=== PATIENT | female | born 1960 | race Caucasian/White ===

== ENCOUNTER 2019-09-03 14:46 | Observation (INO) | payer OTHER, SELFPAY ==
--- NOTE | ~2019-09-03 | XR_ITS ---
EXAMINATION: XR wrist RT 2V DATE: 09/03/2019 15:48 INDICATION: Posterior right wrist abscess. TECHNIQUE: Posteroanterior and lateral views of the right wrist were obtained. COMPARISON: none FINDINGS: Bone alignment is normal. Abnormal contour to the articular surface of the distal radius with suggest ion of an old healed fracture with slight depression of the articular surface at the lunate fossa. No acute fractures identified. The profiled portions of the joint spaces appear normal. Prominent soft tissue swelling with subcutaneous edema over the dorsum of the right hand, wrist and m id to distal forearm. There is prominent focal bulging dorsal to the carpus which may represent a sit e of a reported abscess. No soft tissue gas or radiopaque foreign body. No underlying cortical erosio n or periosteal reaction to suggest osteomyelitis. IMPRESSION: 1. No acute osseous abnormality, soft tissue gas or radiopaque foreign bodies. Reviewed, dictated and finalized at location A. ERCIAL MANAGER
[2019-09-03 14:55] VITALS: BP 128/72; PULSE 93; RESP 20; TEMP 37.4; O2SAT 97
--- NOTE | 2019-09-03 15:35 | ED.SKABFB ---
HPI - Skin/Abscess/Foreign Bdy General Chief complaint: Skin/Abscess/Foreign Body Stated complaint: Right hand irritation Source: patient and family (son) Mode of arrival: ambulatory Limitations: no limitations History of Present Illness HPI narrative: 59 y.o. with no known medical problems per son c/o pimple like lesion which erupted on the back of her right wrist 2 days ago which has been getting larger and more painful. It's a sharp constant pain, made worse with wrist flexion/extension or when pressure is applied. No hx of injury or puncture. She has no hx of skin infections/MRSA. No family members with MRSA. There's been no treatment prior to arrival. Was very obese 2 years ago. After the of her she started loosing weight, which has persisted. No knowledge of previous weight. Related Data Home Medications Medication Instructions Recorded Confirmed No Home Medications 09/03/19 09/03/19 Allergies Allergy/AdvReac Type Severity Reaction Status Date / Time No Known Allergies Allergy Verified 09/03/19 15:04 Review of Systems Constitutional: Constitutional: Reports chills Eyes: Eyes: Denies blurry vision ENT: Reports Normal hearing present, Denies neck pain and Denies sore throat Cardiovascular: Cardiovascular: Reports chest pain (pain in right upper chest this AM for a little while. None before or since.) and Reports lightheadedness Respiratory: Respiratory: Denies dyspnea Gastrointestinal: Gastrointestinal: Denies abdominal pain, Denies diarrhea and Reports nausea (last PM) Genitourinary: Genitourinary: Denies dysuria Musculoskeletal: Musculoskeletal: Denies back pain Integumentary/Breasts: Skin/Breast: Reports system reviewed and no additional complaints, except as docu Neurologic: Reports headache(s) (today) Psychiatric: Comments: Sometimes hears voices, can't make out what they are saying. Son states mental health provider saw her at home in the past; she was on a medicine; she and he do not know the name or purpose. Endocrine: Endocrine: Reports polyuria (urinates x5 at night. ) Hematologic/Lymphatic: Hematologic/Lymphatic: Denies easy bleeding PMFSH Past Medical History Medical History (Updated 09/03/19 @ 16:27 by Williams Giron MD) Obesity Varicose veins of both lower extremities Social History Social History Smoking status: Former smoker Alcohol intake: never Substance use: never Gender identity (if verbalized by the patient): Female Spiritual care concerns: No Agree to blood products: Yes Exam Narrative: Exam Narrative: 37.4, 93, 20. 128/72 Const: General: cooperative and other (disheveled) Nutritional Appearance: obese Orientation/consciousness: patient oriented x3 HENMT: Head: normal to inspection General nose exam: Normal external nose present Face and sinus: sinuses nontender Mouth: Yes Normal oral and palatal mucosa present, Yes moist mucous membranes and Yes other (edentulous) Throat: posterior oropharynx normal Eyes: General: appearance normal, both eyes and all related structures EOM: EOMs intact bilaterally Neck: Neck: normal visual inspection Lymphatic: no lymphadenopathy noted Chest: Chest palpation & inspection: normal inspection of the chest Resp: Effort & Inspection: normal respiratory effort, able to speak in complete sentences and no respiratory distress Auscultation: clear to auscultation bilaterally Cardio: Rate: regular rate Rhythm: regular rhythm Heart sounds: no murmurs GI: Inspection: normal to inspection, Abdominal wall edema and obesity GI Palp: No abdominal tenderness Back/Spine/Pelvis: Thoracic/Lumbar Spine: thoracic and lumbar spine normal to inspection Skin: Lesions: lesion noted ( ) Wounds: wounds noted (Raised, red 1 cm ulcer right dorsal with surrounding erythema.) Other: right dorsal hand is swollen,red and tender. Fingers are swollen. Dark red swollen of the entire dorsal wirist/tender. Redne
[2019-09-03] MEDS: ACETAMINOPHEN 325 MG TABLET 650 MG PO (15:40)
--- NOTE | 2019-09-03 15:45 | PC.NURSE ---
I&D of abscess posterior R wrist done by Dr Giron. Moderate amount of purulent drainage noted. Dressing placed using non-adherent gauze, 4x4s and tape. Pt tolerated well.
[2019-09-03 15:59] LABS: Basophils Absolute Auto 0.02 K/mm3 (0.00-0.10); Basophils Percent Auto 0.3 % (0.0-1.0); Eosinophils Absolute Auto 0.01 K/mm3 (0.02-0.50); Eosinophils Percent Auto 0.1 % (1.0-6.0); Hematocrit 37.7 % (35.0-49.0); Hemoglobin 12.2 g/dL (12.0-15.0); Immature Granulocyte Absolute 0.02 K/mm3 (0.00-0.00); Immature Granulocyte Percent A 0.3 % (0.0-0.0); Lymphocytes Percent Auto 13.1 % (18.0-42.0); Mean Corpuscular HGB Conc 32.4 g/dL (32.0-36.0); Mean Corpuscular Volume 89.5 fL (78.0-102.0); Monocytes Absolute Auto 0.85 K/mm3 (0.10-0.90); Monocytes Percent Auto 11.2 % (2.0-11.0); Neutrophils Absolute Auto 5.7 K/mm3 (1.7-7.2); Platelet Count Result 116 K/mm3 (150-420); Red Blood Count 4.21 M/mm3 (4.20-5.40); Red Cell Distribution Width 13.5 % (11.6-14.4); White Blood Count 7.6 K/mm3 (4.8-10.8)
[2019-09-03 16:13] LABS: Alanine Aminotransferase 27 U/L (14-59); Albumin Level 3.5 g/dL (3.4-5.0); Alkaline Phosphatase 80 U/L (46-116); Anion Gap 13.5 mmol/L (7-16); Aspartate Amino Transferase 20 U/L (15-37); Bilirubin,Total 0.4 mg/dL (0.00-1.00); Blood Urea Nitrogen 23 mg/dL (7-18); Calcium 8.5 mg/dL (8.5-10.1); Carbon Dioxide 28 mmol/L (21-32); Chloride 104 mmol/L (98-108); Estimated CRCL calculation 76 ml/min; Estimated Glomerular Filt Rate > 60; Glucose 114 mg/dL (70-99); Osmolality Calculated 298 mOsm/kg (285-295); Potassium 3.5 mmol/L (3.5-5.1); Sodium 142 mmol/L (136-145); Total Protein 7.2 g/dL (6.4-8.2)
--- NOTE | 2019-09-03 16:45 | PC.NURSE ---
Clarified with Dr Giron re: need for blood cultures prior to administration of Vancomycin. Per Dr Giron, blood cultures are not warranted at this time.
[2019-09-03 17:36] VITALS: BP 150/75; PULSE 77; RESP 20; O2SAT 98
[2019-09-03 17:41] LABS: Add Urine Microscopic? YES; Appearance Urine Clear (Clear); Bilirubin Urine Negative (Negative); Blood Urine 2+ (Negative); Color Urine Yellow (Yellow); Glucose Urine UA Negative (Negative); Ketones Urine Negative (Negative); Leukocyte Esterase Ur Trace (Negative); Nitrate Urine Negative (Negative); Protein Urine Negative (Negative)
[2019-09-03 17:45] LABS: WBC Urine 0-3 /hpf (0-3)
[2019-09-03 17:46] LABS: Bacteria Urine 1+ /hpf; Squamous Epithelial Cell Urine Few /hpf (Few)
[2019-09-03 17:50] VITALS: BMI 33.1
--- NOTE | 2019-09-03 18:05 | PC.NURSE ---
here for antibiotic therapy after I/D of Right hand near wrist area, hand swollen and red, dressing from ER in place, vanco infusing, oriented to room and hospital procedures
[2019-09-03 18:17] VITALS: BP 116/70; PULSE 79; RESP 18; TEMP 37; O2SAT 96
--- NOTE | 2019-09-03 19:05 | PC.NURSE ---
Patient ambulated to/from bathroom with steady gait with SBA. Denies pain to right hand/wrist/forearm @ this time. Dressing CDI to area. Area remains swollen and red. Call light in reach.
--- NOTE | 2019-09-03 20:00 | PC.NURSE ---
Patient watching tv while lying in bed. Right hand elevated on 2 pillows. Right hand/wrist/forearm area remains swollen and red. Patient continues to deny pain to area. Call light in reach.
--- NOTE | 2019-09-03 21:10 | PC.NURSE ---
Patient appears to be sleeping by the rise and fall of her chest. Respirations even and unlabored. No distress noted. Call light in reach.
--- NOTE | 2019-09-03 21:11 | PC.NURSE ---
Right hand/wrist/forearm remains elevated on 2 pillows. Area remains red and swollen. No evidence of pain noted. Call light in reach.
--- NOTE | 2019-09-03 22:00 | PC.NURSE ---
Patient appears to be sleeping by the rise and fall of her chest. Respirations even and unlabored. No distress noted. Call light in reach.
--- NOTE | 2019-09-03 22:01 | PC.NURSE ---
Right hand/wrist/forearm remains red and swollen. Dressing CDI to area. No evidence of pain noted. Call light in reach.
--- NOTE | 2019-09-03 23:45 | PC.NURSE ---
Patient awakened easily for VS but remained drowsy. Right hand/wrist/forearm remains swollen and red and area continues to be elevated on 2 pillows. Patient denies pain/complaints/needs @ this time. No distress noted. Call light in reach.
[2019-09-04] VITALS: BP 121/75; PULSE 64; RESP 20; TEMP 37.2; O2SAT 98
--- NOTE | 2019-09-04 00:06 | PC.NURSE ---
Patient appears to be sleeping by the rise and fall of her chest. Respirations even and unlabored. Right hand remains elevated on 2 pillow and hand/wrist/forearm remain swollen and red. No evidence of pain noted. Call light in reach.
--- NOTE | 2019-09-04 01:05 | PC.NURSE ---
Patient appears to be sleeping by the rise and fall of her chest. Respirations even and unlabored. Right hand remains elevated on 2 pillow and hand/wrist/forearm appear slightly less swollen and less red. No evidence of pain noted. Call light in reach.
--- NOTE | 2019-09-04 02:00 | PC.NURSE ---
Patient appears to be sleeping by the rise and fall of her chest. Respirations even and unlabored. Right hand remains elevated on 2 pillows and hand/wrist/forearm are less swollen and red. No evidence of pain noted. Call light in reach.
--- NOTE | 2019-09-04 02:59 | PC.NURSE ---
Patient appears to be sleeping by the rise and fall of her chest. Respirations even and unlabored. Patient's right hand/wrist/forearm remain elevated on 2 pillows. Slight improvement in swelling and redness noted. No distress noted. No evidence of pain noted. Call light in reach.
--- NOTE | 2019-09-04 03:50 | PC.NURSE ---
Patient awake when nurse entered room. Patient ambulated to/from bathroom with 1 assist with unsteady gait. Patient's right hand/wrist/forearm less red and swelling continues to decrease slowly. Area elevated on 2 pillows. Patient denies pain to area. Patient also denies any other pain/complaints/needs @ this time. Vancomycin began infusing to site in left forearm. Site flushes with ease. Call light in reach.
--- NOTE | 2019-09-04 04:35 | PC.NURSE ---
Patient lying in bed watching tv. IV Vancomycin infusing without difficulty to site in left forearm. Right hand remains elevated on 2 pillows. Patient denies pain/complaints/needs @ this time. Call light in reach.
--- NOTE | 2019-09-04 06:24 | PC.NURSE ---
Patient lying in bed watching tv. IV Vancomycin finished infusing. Right hand remains elevated on 2 pillows. Patient denies pain/complaints/needs @ this time. Call light in reach.
--- NOTE | 2019-09-04 07:30 | PC.NURSE ---
Hand remains in pillow, dressing dry and intact, less redness to hand, more pink, less edema than on admit,
[2019-09-04 07:32] VITALS: BP 109/62; PULSE 65; RESP 18; TEMP 37; O2SAT 96
--- NOTE | 2019-09-04 08:09 | PC.NURSE ---
Sitting on edge of bed eating, less redness and edema to right hand this am
[2019-09-04] MEDS: ENOXAPARIN 40 MG/0.4 ML SYRINGE SUB-Q (09:30)
--- NOTE | 2019-09-04 09:37 | PC.NURSE ---
Assisted up to chair to watch TV, right hand elevated on pillow dressing dry and intact, edema to hand less, no pain
--- NOTE | 2019-09-04 10:34 | PC.NURSE ---
in chair with arm / hand elevated on pillow for comfort, denies pain, dressing dry and intact
--- NOTE | 2019-09-04 11:06 | PC.NURSE ---
In chair with arm elevated, denies needs, dressing d/i
--- NOTE | 2019-09-04 12:09 | PC.NURSE ---
IN chair eating lunch, no pain in right hand, dressing remains dry and intact, no increase in edema today
--- NOTE | 2019-09-04 12:24 | PM.IMHP ---
H&P: HPI History of Present Illness Chief complaint: Right hand irritation Narrative: Alyssa Ardon is a 59 year old female that presented to ED complaining of right hand and wrist pain. Patient has a past medical history of obesity in varicose veins of both lower extremities. . Patient is being admitted for right hand and wrist cellulitis. vital signs are 109/62, 65, 18, 37.0 and 96% on room air. According to patient 3 days ago she developed a pimple on her right hand, she used hydrogen peroxide and ointment to the site. The same day patient patient noted that her right hand became edematous and danielle. she also took [id number] ibuprofen for her pain. While patient was at home she felt discharge constant pain that worsened when she flexed her wrist when pressure was applied. While she was in the ER x-ray of the wrist was completed and indicated Prominent soft tissue swelling with subcutaneous edema over the dorsum of the right hand, wrist and mid to distal forearm. There is prominent focal bulging dorsal to the carpus which may represent a site of a reported abscess. No soft tissue gas or radiopaque foreign body. No underlying cortical erosion or periosteal reaction to suggest osteomyelitis. patient white blood cells was within normal limits. ED physician completed an I&D of the right hand while in the ED and a culture was sent patient was placed on vancomycin because cellulitis involved hand and wrist. Patient able to tolerate all meals , slept well and ambulate at baseline. Patient denies SOB, CP, palpitation, extremity numbness, lightheadness, dizziness, constipation, diarrhea, or chills or fever. Dressing changed on right hand according to patient edema and erythemous have improved. while changing dressing there was a dime size serosanguineous drainage noted on Telfa dressing. site remained edematous with erythemous around the raised lesion. there was no edematous or erythema on patient digits. I will give patient 1 more dose IV vancomycin and start her on p.o. clindamycin tomorrow morning and discharge. Review of Systems Constitutional: Constitutional: Denies fatigue, Reports fever(s), Denies headache(s) and Denies weakness Cardiovascular: Cardiovascular: Reports no additional cardiovascular complaints, Denies syncope, Denies edema, Denies leg ulcers, Denies leg edema and Denies dyspnea Respiratory: Respiratory: Denies chest congestion, Denies cough, Denies dyspnea, Denies snoring and Denies wheezing Gastrointestinal: Gastrointestinal: Denies constipation, Denies diarrhea, Denies nausea and Denies vomiting Genitourinary: Genitourinary: Reports no additional female genitourinary complaints, Denies urinary incontinence and Denies urinary hesitancy Musculoskeletal: Musculoskeletal: Denies arthralgias ( right wrist and hand) and Denies joint swelling ( right wrist and hand) Integumentary/Breasts: Skin/Breast: Reports swelling ( right wrist and hand) and Reports erythema ( right wrist and hand) Neurologic: Reports system reviewed and no additional complaints, except as documented, Denies confusion, Denies vertigo, Denies dizziness, Denies syncope, Denies frequent falls, Denies headache(s) and Denies tingling Psychiatric: Psychiatric: Reports no additional psychiatric complaints PMF Past Medical History Medical History (Updated 09/04/19 @ 12:57 by ROZ MclaughlinP-C) Obesity Varicose veins of both lower extremities Social History Social History Smoking status: Former smoker Alcohol intake: never Substance use: never Gender identity (if verbalized by the patient): Female Spiritual care concerns: No Agree to blood products: Yes Meds Home Medications and Allergies Home Medications Medication Instructions Recorded Confirmed Type No Home Medications 09/03/19 09/03/19 History Allergies Allergy/AdvReac Type Severity Reaction Status Date / Time No Known Allergies Allergy Verified
--- NOTE | 2019-09-04 13:10 | PC.NURSE ---
Remains in chair with hand elevated on pillows, edema present but much less, no apin
[2019-09-04] MEDS: PHARMACIST COMMUNICATION ORDER 1 EACH XX (13:23)
--- NOTE | 2019-09-04 14:37 | PC.NURSE ---
In chair with arm elevated on pillow, dressing dry and intact
[2019-09-04] MEDS: IBUPROFEN 400 MG TABLET PO (15:27)
[2019-09-04 15:30] VITALS: BP 92/44; PULSE 67; RESP 20; TEMP 36.8; O2SAT 100
[2019-09-04 15:37] LABS: Hematocrit 36.6 % (35.0-49.0); Hemoglobin 11.6 g/dL (12.0-15.0); Mean Corpuscular HGB Conc 31.7 g/dL (32.0-36.0); Mean Corpuscular Hemoglobin 28.9 pg (27.0-31.0); Mean Platelet Volume 10.2 fl (9.2-11.8); Platelet Count Result 116 K/mm3 (150-420); Red Blood Count 4.02 M/mm3 (4.20-5.40); Red Cell Distribution Width 13.5 % (11.6-14.4); White Blood Count 5.5 K/mm3 (4.8-10.8)
[2019-09-04 15:53] LABS: Blood Urea Nitrogen 18 mg/dL (7-18); Calcium 8.1 mg/dL (8.5-10.1); Carbon Dioxide 30 mmol/L (21-32); Chloride 105 mmol/L (98-108); Estimated CRCL calculation 73 ml/min; Estimated Glomerular Filt Rate > 60; Glucose 103 mg/dL (70-99); Osmolality Calculated 293 mOsm/kg (285-295); Sodium 141 mmol/L (136-145)
[2019-09-04 15:54] LABS: Vancomycin Trough 14.2 ug/mL (10.0-15.0)
[2019-09-04] MEDS: CEFDINIR 300 MG CAPSULE PO (20:29)
[2019-09-05] VITALS: BP 102/50; PULSE 54; RESP 20; TEMP 36.1; O2SAT 97
--- NOTE | 2019-09-05 01:02 | PC.NURSE ---
Sleeping, resp deep & even. Dressing R hand is D&I. No redness noted to R arm.
--- NOTE | 2019-09-05 02:12 | PC.NURSE ---
Sleeping, resp even. Dressing R hand remains D&I. No redness noted to R arm.
--- NOTE | 2019-09-05 03:02 | PC.NURSE ---
Sleeping, resp even. Dressing R hand D&I.
--- NOTE | 2019-09-05 03:25 | PC.NURSE ---
Lab here for blood draw.
[2019-09-05 03:36] LABS: Hematocrit 34.6 % (35.0-49.0); Hemoglobin 11.2 g/dL (12.0-15.0); Immature Platelet Fraction Pct 2.5 % (1.0-7.0); Mean Corpuscular HGB Conc 32.4 g/dL (32.0-36.0); Mean Corpuscular Hemoglobin 29.2 pg (27.0-31.0); Mean Corpuscular Volume 90.3 fL (78.0-102.0); Mean Platelet Volume 9.7 fl (9.2-11.8); Platelet Count Result 109 K/mm3 (150-420); Red Blood Count 3.83 M/mm3 (4.20-5.40); Red Cell Distribution Width 13.5 % (11.6-14.4); White Blood Count 4.1 K/mm3 (4.8-10.8)
[2019-09-05 04:01] LABS: Blood Urea Nitrogen 14 mg/dL (7-18); Carbon Dioxide 28 mmol/L (21-32); Chloride 106 mmol/L (98-108); Estimated CRCL calculation 80 ml/min; Estimated Glomerular Filt Rate > 60; Glucose 89 mg/dL (70-99); Osmolality Calculated 291 mOsm/kg (285-295); Sodium 141 mmol/L (136-145)
[2019-09-05 04:14] LABS: Vancomycin Trough 16.3 ug/mL (10.0-15.0)
--- NOTE | 2019-09-05 04:28 | PC.NURSE ---
Dr. Roa notified [facility] trough:16.3; Pedro held.
--- NOTE | 2019-09-05 04:31 | PC.NURSE ---
0400 Vanco not given duie to trough level of 16.3
--- NOTE | 2019-09-05 06:04 | PC.NURSE ---
Sleeping, resp even. No redness noted to R arm. Dressing R hand D&I.
--- NOTE | 2019-09-05 07:30 | PC.NURSE ---
Resting inb ed with hand on pillow, dressing d/i, denies pain, swelling and redness to fingers improved
[2019-09-05 07:46] VITALS: BP 110/51; PULSE 72; RESP 18; TEMP 36.4; O2SAT 96
--- NOTE | 2019-09-05 08:30 | PC.NURSE ---
Ate well for breakfast, denies needs, no pain, able to use right hand and dressing remains d/i
[2019-09-05] MEDS: CEFDINIR 300 MG CAPSULE PO (08:46)
--- NOTE | 2019-09-05 09:30 | PC.NURSE ---
Resting in chair, legs elevated, hand on pillow, dressing d/i, oral antibiotics have started
--- NOTE | 2019-09-05 10:30 | PC.NURSE ---
Back in bed and arm up on pillow, no redness to hand or fingers, dressing dry and intact
--- NOTE | 2019-09-05 11:40 | PC.NURSE ---
Dressing to hand D/I, elevated on pillow, no redness to hand
--- NOTE | 2019-09-05 11:49 | PM.DS ---
DS: Diagnosis Admitting Diagnosis Admitting Diagnosis: Urinary tract infection, site not specified <MARCO Mclaughlin - Last Filed: 09/05/19 13:50> Discharge Diagnosis (1) Obesity: Code(s): E66.9 - Obesity, unspecified <MARCO Mclaughlin Last Filed: 09/05/19 13:50> Status: Acute <MARCO Mclaughlin Last Filed: 09/05/19 13:50> Assessment and Plan: * patient educated on proper nutrition. * patient instructed to consult Nutrition after discharge <MARCO Mclaughlin - Last Filed: 09/05/19 13:50> (2) Varicose veins of both lower extremities: Code(s): I83.93 - Asymptomatic varicose veins of bilateral lower extremities <MARCO Mclaughlin Last Filed: 09/05/19 13:50> Status: Acute <MARCO Mclaughlin Last Filed: 09/05/19 13:50> Assessment and Plan: * stable * follow-up with primary care physician <MARCO Mclaughlin - Last Filed: 09/05/19 13:50> (3) Abscess of right arm: Code(s): L02.413 - Cutaneous abscess of right upper limb <MARCO Mclaughlin Last Filed: 09/05/19 13:50> Status: Acute <MARCO Mclaughlin Last Filed: 09/05/19 13:50> Assessment and Plan: improved * x-ray of the right wrist and hand indicates Prominent soft tissue swelling with subcutaneous edema over the dorsum of the right hand, wrist and mid to distal forearm. There is prominent focal bulging dorsal to the carpus which may represent a site of a reported abscess. No soft tissue gas or radiopaque foreign body. No underlying cortical erosion or periosteal reaction to suggest osteomyelitis. * patient was discharged with p.o. clindamycin and medication * wbc's the normal limit * . * patient afebrile * wound culture indicate: Few White blood cells seen Few Gram positive cocci Rare Gram variable bacilli * I&D completed in the ED <Daviddestinee MARCO Nelson - Last Filed: 09/05/19 13:50> (4) Cellulitis of right arm: Code(s): L03.113 - Cellulitis of right upper limb <MARCO Mclaughlin - Last Filed: 09/05/19 13:50> Status: Acute <MARCO Mclaughlin - Last Filed: 09/05/19 13:50> Assessment and Plan: improved * x-ray of the right wrist and hand indicates Prominent soft tissue swelling with subcutaneous edema over the dorsum of the right hand, wrist and mid to distal forearm. There is prominent focal bulging dorsal to the carpus which may represent a site of a reported abscess. No soft tissue gas or radiopaque foreign body. No underlying cortical erosion or periosteal reaction to suggest osteomyelitis. * patient was discharged with p.o. clindamycin and medication * wbc's the normal limit * patient afebrile * I&D completed in the ED <MARCO Mclaughlin - Last Filed: 09/05/19 13:50> (5) UTI (urinary tract infection): Code(s): N39.0 - Urinary tract infection, site not specified <MARCO Mclaughlin - Last Filed: 09/05/19 13:50> Status: Acute <MARCO Mclaughlin - Last Filed: 09/05/19 13:50> Assessment and Plan: *Patient UA indicated leukocyte esterase and bacteria * continue cefdinir <MARCO Mclaughlin - Last Filed: 09/05/19 13:50> DS: Summary Hospital Course Hospital Course: admission notes for 09/04/2019 Narrative: Alyssa Ardon is a 59 year old female that presented to ED complaining of right hand and wrist pain. Patient has a past medical history of obesity in varicose veins of both lower extremities. . Patient is being admitted for right hand and wrist cellulitis. vital signs are 109/62, 65, 18, 37.0 and 96% on room air. According to patient 3 days ago she developed a pimple on her right hand, she used hydrogen peroxide and ointment to the site. The same day patient patient noted that her right hand became edematous and danielle. she also took [id number] ibuprofen
--- NOTE | 2019-09-05 12:59 | PC.NURSE ---
Patient dressed self, up independent in room, denies needs
--- NOTE | 2019-09-05 13:59 | PC.NURSE ---
Waiting for son for discharge, given afternoon snack at this time, dressed self and denies pain, dressing to hand d/i
--- NOTE | 2019-09-05 15:05 | PC.NURSE ---
discharged with son via WC to home, discharge instructions reviewed with son present, no questions at this time, number to nurse station given if have questions once home
--- NOTE | 2019-09-05 20:36 | PM.EVENT ---
Event Note Event Note Event Note: I had [id number] time with this patient and reviewed Saloni Ariza NP's documentation, treatment plan, and medical decision making. She moves her right wrist without pain. The dorsum of the hand is not erythema or tenderness. I agree with the plan.
--- NOTE | 2019-09-07 18:49 | PC.NURSE ---
URINE CULTURE RESULTS OBTAINED, PT CURRENTLY BEING TREATED APPROPRIATELY.
== END 2019-09-05 15:05 | disposition home or self-care (01) ==
LOC: CHSED 17:19 → CHS2ND 17:27
PROVIDERS: Nurse Practitioner; Admitting Provider Family Medicine; Emergency Provider Family Medicine; Visit Provider Family Medicine
DX: L02.413 Cutaneous abscess of right upper limb (principal); L03.113 Cellulitis of right upper limb; N39.0 Urinary tract infection, site not specified; I83.93 Asymptomatic varicose veins of bilateral lower extremities; E66.9 Obesity, unspecified
CPT/HCPCS: 10060; 36415; 73100; 80048; 80053; 80202; 81001; 85025; 85027; 85055; 87070; 87077; 87086; 87088; 87186; 87205; 96365; 96366; 96372; 99284; 99285; A9270; G0378; G0379; J1650; J3370; J7070

== ENCOUNTER 2020-07-05 21:20 | Inpatient (IN) | payer OTHER, SELFPAY ==
--- NOTE | ~2020-07-05 | CT_ITS ---
EXAMINATION: CTA chest PE abdomen pel DATE: 07/05/2020 23:26 INDICATION: Right-sided chest and abdominal pain TECHNIQUE: Computed tomography angiography (CTA) of the chest was performed with 100 mL Omnipaque-350 intravenous contrast timed to evaluate the pulmonary arteries. Subsequent postcontrast images of the abdomen and pelvis are obtained. Coronal maximum intensity projection 3D-reconstructions were create d by the technologist. The dose-length product (DLP) was 1374.21 mGy-cm. Automated exposure control a nd iterative reconstruction technique were employed. COMPARISON: None. FINDINGS: CTA CHEST: The pulmonary arteries are well-opacified. Respiratory motion artifact slightly limits exa mination. No definite pulmonary embolism is identified. There is a 5.3 x 3.1 cm ill-defined mass of t he right upper lobe. There is right hilar, right paratracheal, and precarinal lymphadenopathy. The he art size is normal. There is enlargement of the main and central pulmonary arteries, consistent with pulmonary hypertension. There is no pleural effusion or pneumothorax. There is a 1.4 cm nodule of the right thyroid lobe. ABDOMEN/PELVIS CT: The liver, spleen, pancreas, gallbladder, and adrenal glands are normal. The kidne ys are unremarkable. There is calcified atherosclerosis of the aorta and many of the other arteries. A moderate volume of colonic stool is present. There is no free intraperitoneal gas or evidence of deric wel obstruction. There is moderate bilateral inguinal lymphadenopathy. There are bilateral inguinal s urgical clips. There are bilateral L4 pars defects with grade 1 anterolisthesis of L4 on L5. IMPRESSION: 1. No definite pulmonary embolism identified, sensitivity slightly limited by respiratory motion ian fact. 2. Right upper lobe mass which could reflect pneumonia versus malignancy. Recommend antibiotic therap y and plan for CT-guided biopsy. Response to antibiotic therapy can be assessed at the time of planne d CT biopsy. 3. Right hilar and mediastinal lymphadenopathy, reactive versus metastatic. 4. Mild bilateral inguinal lymphadenopathy of unclear etiology. Surgical clips in the bilateral ingui nal regions could reflect prior lymph node dissection. Correlate with clinical history. 5. Right thyroid nodule. Consider ultrasound for risk stratification. Reviewed, dictated and finalized at location A. [employer] SERVICES ASSOCIATE IMPRESSION: 1. No definite pulmonary embolism identified, sensitivity slightly limited by r espiratory motion artifact. 2. Right upper lobe mass which could reflect pneumonia versus malignancy. Recom mend antibiotic therapy and plan for CT-guided biopsy. Response to antibiotic t herapy can be assessed at the time of planned CT biopsy. 3. Right hilar and mediastinal lymphadenopathy, reactive versus metastatic. 4. Mild bilateral inguinal lymphadenopathy of unclear etiology. Surgical clips in the bilateral inguinal regions could reflect prior lymph node dissection. Co rrelate with clinical history. 5. Right thyroid nodule. Consider ultrasound for risk stratification.
--- NOTE | ~2020-07-05 | CT_ITS ---
EXAMINATION: CT chest abdomen pelvis w con DATE: 07/08/2020 09:22 INDICATION: Lung mass. TECHNIQUE: Computed tomography (CT) of the chest, abdomen, and pelvis was performed with 100 Omnipaqu e 350 intravenous contrast. Automated exposure control and iterative reconstruction technique were em ployed. The dose-length product was 1062.30 mGy-cm. COMPARISON: CT 07/05/2020 FINDINGS: CHEST CT: There is mild atelectasis in the lungs. In the right upper lobe, there are airspace and groundglass o pacities with air bronchograms, consistent with pneumonia. There is mild emphysema. There is a small right pleural effusion. There is a 12 mm nodule in right thyroid lobe, likely not clinically signific ant. There is mediastinal and right hilar lymphadenopathy. For example, a right paratracheal node dustin sures 1.9 x 1.7 cm. The heart size is normal. No pericardial effusion. The main pulmonary artery is e nlarged, consistent with pulmonary arterial hypertension. There is moderate thoracic spondylosis. ABDOMEN/PELVIS CT: The liver and gallbladder are normal. There are multiple low-attenuation masses in the spleen measuri ng up to 9 mm, most likely granulomatous disease. The pancreas, adrenal glands, and kidneys are marily l. There are no dilated loops of bowel. The endometrial complex measures 9 mm in thickness. There are no dilated loops of bowel. The appendix is not visualized. There are surgical clips in the inguinal regions. There are no pathologically enlarged lymph nodes. There is no free intraperitoneal fluid. Th ere are chronic bilateral L4 pars defects. There is 10 mm anterolisthesis of L4 on L5. There is sever e degenerative disc disease at L4-L5. IMPRESSION: 1. Stable right upper lobe pneumonia. 2. Worsened small right pleural effusion. 3. Stable mediastinal and right hilar lymphadenopathy, likely reactive. Reviewed, dictated and finalized at location A. [employer] SYSTEM[employer] DEVELOPER
[2020-07-05 21:20] VITALS: BP 155/72; PULSE 87; RESP 16; TEMP 36.6; O2SAT 100
--- NOTE | 2020-07-05 21:22 | ECG_ITS ---
Measurements Intervals Nancy Rate: 81 P: 80 NE: 154 QRS: 96 QRSD: 89 T: 47 QT: 359 QTc: 419 Interpretive Statements SINUS RHYTHM RIGHT AXIS DEVIATION INCOMPLETE RIGHT BUNDLE BRANCH BLOCK BASELINE ARTIFACT- I, II, III, AVR, AVL, AVF BORDERLINE ECG Electronically Signed On 07-07-2020 8:23:44 [employer] REPAIRER HELPER by Everardo Garduno D.O.
[2020-07-05] MEDS: ONDANSETRON INJ 4 MG/2 ML VIAL IV PUSH (21:58)
[2020-07-05 21:59] LABS: Hemoglobin 11.8 g/dL (12.0-15.0); Mean Corpuscular HGB Conc 31.9 g/dL (32.0-36.0); Mean Corpuscular Volume 87.9 fL (78.0-102.0); Mean Platelet Volume 9.2 fl (9.2-11.8); Platelet Count Result 132 K/mm3 (150-420); Red Blood Count 4.21 M/mm3 (4.20-5.40); Red Cell Distribution Width 13.9 % (11.6-14.4); White Blood Count 2.6 K/mm3 (4.8-10.8)
[2020-07-05] MEDS: MORPHINE SULFATE (*CRX) 2 MG/ML INJ IV PUSH (22:00)
[2020-07-05 22:15] LABS: Partial Thromboplastin Time 25.6 SEC (23.90-30.70); Prothrombin Time 11.5 Seconds (9.50-12.10)
[2020-07-05 22:17] LABS: Alanine Aminotransferase 41 U/L (14-59); Albumin Level 3.3 g/dL (3.4-5.0); Alkaline Phosphatase 85 U/L (46-116); Anion Gap 4 mmol/L (8-16); Aspartate Amino Transferase 29 U/L (15-37); Bilirubin,Total 0.3 mg/dL (0.00-1.00); Blood Urea Nitrogen 27 mg/dL (7-18); Calcium 8.4 mg/dL (8.5-10.1); Carbon Dioxide 30 mmol/L (21-32); Chloride 103 mmol/L (98-108); Estimated Glomerular Filt Rate 58; Glucose 106 mg/dL (70-99); Lipase 134 U/L (73-393); Osmolality Calculated 289 mOsm/kg (285-295); Potassium 4.1 mmol/L (3.5-5.1); Sodium 137 mmol/L (136-145); Total Protein 7.1 g/dL (6.4-8.2); Troponin I 5.8 ng/L (0.00-60.4)
[2020-07-05 22:21] LABS: BNP 69.2 pg/mL (0-100)
[2020-07-05 22:22] LABS: Band Neutrophils Percent 0 % (0-6); Basophils Absolute Manual 0.02 K/mm3 (0-0.1); Basophils Percent Manual 1 % (0-1); Eosinophils Absolute Manual 0.02 K/mm3 (0.02-0.5); Eosinophils Percent Manual 1 % (1-6); Lymphocytes Absolute Manual 1.17 K/mm3 (1.1-4.5); Lymphocytes Percent Manual 45 % (18-44); Monocytes Absolute Manual 0.28 K/mm3 (0.1-0.90); Monocytes Percent Manual 11 % (3-9); Neutrophils Absolute Manual 1.09 K/mm3 (1.7-7.2); Neutrophils Percent Manual 42 % (46-73); Platelet Estimate Adequate (Adequate)
[2020-07-05 22:24] LABS: D Dimer 7.13 mg/L (0.19-0.50)
[2020-07-05 22:26] VITALS: BP 123/70; PULSE 74; RESP 18; O2SAT 98
[2020-07-05] MEDS: ASPIRIN 81 MG CHEWABLE TABLET 324 MG PO (22:46)
--- NOTE | 2020-07-05 23:34 | ED.CHESTPAIN ---
HPI - Chest Pain General Chief Complaint: Chest Pain Stated Complaint: 60 YO female w/ 2 day h.o Right Lower chest and RUQ abd pain that started after she ate Fried chicken. Patient states usuallythe pain goes away but this time she is unable to get comfortable. Related Data Home Medications Medication Instructions Recorded Confirmed No Home Medications 07/05/20 07/05/20 Allergies Allergy/AdvReac Type Severity Reaction Status Date / Time No Known Allergies Allergy Verified 09/03/19 15:04 Review of Systems Review of Systems: All systems reviewed & are unremarkable except as noted in HPI and below Constitutional: Constitutional: Reports no additional constitutional complaints Cardiovascular: Cardiovascular: Reports chest pain (Right lower chest/breast pain), Denies rapid heart rate and Denies slow heart rate Respiratory: Respiratory: Reports no additional respiratory complaints, Denies chest congestion, Denies cough and Denies dyspnea Gastrointestinal: Gastrointestinal: Reports abdominal pain, Denies constipation, Denies diarrhea, Reports nausea and Denies vomiting Musculoskeletal: Musculoskeletal: Reports no additional musculoskeletal complaints Integumentary/Breasts: Skin/Breast: Reports system reviewed and no additional complaints, except as docu Neurologic: Reports system reviewed and no additional complaints, except as documented Psychiatric: Psychiatric: Reports no additional psychiatric complaints Endocrine: Endocrine: Reports no additional endocrine complaints Hematologic/Lymphatic: Hematologic/Lymphatic: Reports no additional hematologic/lymphatic complaints Allergic/Immunologic: Allergic/Immunologic: Reports no additional allergic/immunologic complaints [facility] Past Medical History Medical History Obesity Varicose veins of both lower extremities Social History Social History Smoking status: Former smoker Alcohol intake: never Substance use: never Gender identity (if verbalized by the patient): Female Spiritual care concerns: No Agree to blood products: Yes Exam Const: General: no acute distress, alert and ill appearing Orientation/consciousness: patient oriented x3 HENMT: Head: normal to inspection Eyes: Conjunctivae: conjunctivae normal Pupils: Equal, round and reactive pupils present Neck: Neck: normal visual inspection Chest: Chest palpation & inspection: normal inspection of the chest Resp: Effort & Inspection: normal respiratory effort Auscultation: clear to auscultation bilaterally Cardio: Rate: regular rate Rhythm: regular rhythm GI: Inspection: non-distended GI Palp: Yes Soft to palpation, Yes Tenderness to palpation present (GI), No Guarding due to palpation present (GI), No Rigid due to palpation and No Rebound tenderness present Other: RUQ TTP w/ positive villagomez's sign : General: Yes no CVA tenderness Back/Spine/Pelvis: Back: no CVA tenderness Skin: General skin exam: normal color Rashes: no rashes Wounds: no wounds Neuro: General: patient oriented x3, moves all extremities, no meningeal signs, no focal motor deficits and CN's II-XI intact bilaterally Cranial nerves: Yes Nystagmus not present Speech: normal speech Gait exam (Neuro): Normal gait present Extrem: General: normal to inspection Psych: Appearance: grossly normal Mental Status: mental status grossly normal Affect: normal affect Attitude: cooperative Thought content: Yes Normal thought content present Course Course Emergency Course: Reviewed results of CTA CHest which reveal a masslike process associated w/ R Hilar Lymphadenopathy (Diff Diag CAP vs Neoplasm). Admit for IV Abx and further testing. D/W Patient who agrees with admission. Vital Signs Vital signs: Vital Signs Temperature 97.8 F 07/05/20 21:20 Pulse Rate 87 07/05/20 21:20 Respiratory Rate 16
[2020-07-06] VITALS (7 sets, daily range): BP systolic 99–127; BP diastolic 48–87; PULSE 62–88; RESP 14–18; TEMP 36.4–37.4; O2SAT 93–100; BMI 36.6
[2020-07-06 00:14] LABS: Add Urine Microscopic? YES; Appearance Urine Clear (Clear); Bilirubin Urine Negative (Negative); Blood Urine 1+ (Negative); Color Urine Yellow (Yellow); Glucose Urine UA Negative (Negative); Ketones Urine Negative (Negative); Leukocyte Esterase Ur Negative (Negative); Nitrate Urine Negative (Negative); Protein Urine Negative (Negative); Specific Grav Ur 1.015 (1.010-1.020); Urobilinogen Urine 0.2 mg/dL (0.2-1.0); pH Urine 6.5 (5.0-8.0)
[2020-07-06 00:24] LABS: Bacteria Urine Trace /hpf; Squamous Epithelial Cell Urine None seen /hpf (Few); WBC Urine 0-3 /hpf (0-3)
[2020-07-06 00:40] LABS: SARS-CoV-2 Ag Negative (Negative)
--- NOTE | 2020-07-06 00:43 | ADMGEN ---
This patient, Alyssa Ardon, was admitted to 2nd Floor Room 203-1. Patient/family oriented to hospital policies and general routines including ID bracelet, bed and alarms, visiting hours, pain management, procedures, bathroom and other care routines, personal items, smoking policy, room service/diet, and visiting hours. Information on how to activate the Rapid Response Team has been discussed. Patient/Family are encouraged to report perceived risks to care and to ask questions if they do not understand what they are told or what they should do.
[2020-07-06 05:49] LABS: Hematocrit 35.5 % (35.0-49.0); Hemoglobin 11.1 g/dL (12.0-15.0); Mean Corpuscular HGB Conc 31.3 g/dL (32.0-36.0); Mean Corpuscular Hemoglobin 27.8 pg (27.0-31.0); Mean Platelet Volume 9.3 fl (9.2-11.8); Platelet Count Result 109 K/mm3 (150-420); Red Blood Count 3.99 M/mm3 (4.20-5.40); Red Cell Distribution Width 13.8 % (11.6-14.4); White Blood Count 2.4 K/mm3 (4.8-10.8)
[2020-07-06 06:11] LABS: Band Neutrophils Percent 0 % (0-6); Basophils Absolute Manual 0.04 K/mm3 (0-0.1); Basophils Percent Manual 2 % (0-1); Eosinophils Absolute Manual 0.12 K/mm3 (0.02-0.5); Eosinophils Percent Manual 5 % (1-6); Lymphocytes Absolute Manual 0.86 K/mm3 (1.1-4.5); Lymphocytes Percent Manual 36 % (18-44); Monocytes Absolute Manual 0.45 K/mm3 (0.1-0.90); Monocytes Percent Manual 19 % (3-9); Neutrophils Absolute Manual 0.91 K/mm3 (1.7-7.2); Neutrophils Percent Manual 38 % (46-73); Platelet Estimate Adequate (Adequate)
--- NOTE | 2020-07-06 07:44 | PM.IMHP ---
H&P: HPI History of Present Illness Date/Time: 07/06/20 07:44 Chief Complaint: n/v generalized weakness Narrative: Alyssa Ardon is a 60 year old female that presented to ED yesterday with complaints of right upper quadrant pain and right lower chest pain. Patient has a past medical history of obesity and varicose veins of both lower extremities. patient states that she has been having these intermittent pains for couple of days. Patient also notes that it worsened while she was standing and with inhalation. Patient did take Tylenol at home with no relief. She also noted that she has had these pains in the past but this time it was more worse than her previous pain this is why she presented to the ED. the patient denies SOB, CP, palpitation, extremity numbness, lightheadedness, dizziness, constipation, diarrhea, chills, or fever. Review of Systems Review of Systems: All systems reviewed & are unremarkable except as noted in HPI and below (10 point system review) [facility] Past Medical History Medical History Obesity Varicose veins of both lower extremities Social History Social History Smoking packs per day: 1 Smoking cigarettes per day: 20.0 Smoking status: Former smoker Tobacco type: cigarettes Second hand tobacco smoke exposure: Yes Smoking end date: 07/05/10 Alcohol intake: current Drinks per week: 1 Substance use: never Gender identity (if verbalized by the patient): Female Sexual Orientation (if Verbalized by the Patient): Straight or Heterosexual Spiritual care concerns: No Agree to blood products: Yes Meds Home Medications and Allergies Home Medications Medication Instructions Recorded Confirmed Type No Home Medications 07/05/20 07/05/20 History Allergies Allergy/AdvReac Type Severity Reaction Status Date / Time No Known Allergies Allergy Verified 09/03/19 15:04 Vital Signs Vital Signs - 24 hr 07/05/20 21:20 07/05/20 22:26 07/06/20 00:33 Temperature 97.8 F 98.6 F Pulse Rate 87 74 82 Respiratory Rate 16 18 18 Blood Pressure 155/72 H 123/70 123/80 Pulse Oximetry 100 98 100 07/06/20 00:39 07/06/20 01:05 07/06/20 04:00 Temperature 98 F 97.5 F L 97.6 F Pulse Rate 88 76 69 Respiratory Rate 18 16 14 Blood Pressure 124/70 99/62 L 108/48 L Pulse Oximetry 100 98 93 Exam Narrative: Exam Narrative: GENERAL: This is a well-nourished, well-developed patient, in no apparent distress. HEAD: normocephalic, atraumatic. EYES: PERRL. Sclera clear/white. Vision is grossly intact. EARS: External ears normal, auditory canals clear and without drainage, TMs normal without perforation. Hearing grossly intact. NOSE: External nose normal with no obvious nasal discharge, nares without redness, no rhinorrhea. THROAT: Mucous membranes moist, posterior pharynx clear. NECK: Neck supple, non-tender without lymphadenopathy, masses or thyromegaly. CARDIOVASCULAR: Regular rate and rhythm without murmurs, gallops, or rubs. RESPIRATORY: Clear to auscultation. Breath sounds equal bilaterally. No wheezes, rales, or rhonchi. GASTROINTESTINAL: Abdomen soft, non-tender, nondistended. Bowel sounds are active. No hepato-splenomegaly, or palpable masses. No guarding. SKIN: warm, intact with no suspicious lesions or rash, good texture and turgor. NEURO: awake, alert, and oriented to person, place and time. There were no obvious focal neurologic abnormalities. Steady gait EXTREMITIES: Normal range of motion. 1+ pitting edema to bilateral lower extremity . No calf tenderness. Negative Homans sign bilaterally. BACK: Nontender without deformity or crepitance. No flank tenderness. H&P: Results Labs Labs: Short CBC 07/05/20 07/06/20 Range/Units 21:54 05:44 WBC 2.6 L 2.4 L (4.8-10.8) K/mm3 Hgb 11.8 L 11.1 L (12.0-15.0) g/dL Hct 37.0 35.5 (35.0-49.0) % Plt Count 132 L 109 L
[2020-07-06] MEDS: DOCUSATE SODIUM 100 MG CAPSULE PO ×2 (09:04→16:18)
[2020-07-06] MEDS: PANTOPRAZOLE SOD SESQUIHYDRATE 20 MG TAB PO (09:04)
[2020-07-06] MEDS: ENOXAPARIN 40 MG/0.4 ML SYRINGE SUB-Q (09:04)
[2020-07-06] MEDS: HYDROcodone/acetaminophen (*CRX) 5-325 MG TABLET 1 TAB PO (15:26)
[2020-07-06] MEDS: HYDROcodone/acetaminophen (*CRX) 10-325 MG TABLET 1 TAB PO (22:43)
--- NOTE | 2020-07-07 02:18 | PC.NURSE ---
pt sleeping, no evidence of distress noted at this time
[2020-07-07 05:29] LABS: Hematocrit 35.6 % (35.0-49.0); Hemoglobin 11.2 g/dL (12.0-15.0); Mean Corpuscular HGB Conc 31.5 g/dL (32.0-36.0); Mean Corpuscular Hemoglobin 27.6 pg (27.0-31.0); Mean Corpuscular Volume 87.7 fL (78.0-102.0); Mean Platelet Volume 9.3 fl (9.2-11.8); Platelet Count Result 110 K/mm3 (150-420); Red Blood Count 4.06 M/mm3 (4.20-5.40); Red Cell Distribution Width 13.9 % (11.6-14.4); White Blood Count 2.2 K/mm3 (4.8-10.8)
[2020-07-07 05:45] LABS: Alanine Aminotransferase 34 U/L (14-59); Albumin Level 2.7 g/dL (3.4-5.0); Alkaline Phosphatase 74 U/L (46-116); Anion Gap 3 mmol/L (8-16); Aspartate Amino Transferase 22 U/L (15-37); Bilirubin,Total 0.4 mg/dL (0.00-1.00); Blood Urea Nitrogen 18 mg/dL (7-18); Calcium 8.3 mg/dL (8.5-10.1); Carbon Dioxide 30 mmol/L (21-32); Chloride 102 mmol/L (98-108); Estimated CRCL calculation 70 ml/min; Estimated Glomerular Filt Rate > 60; Glucose 84 mg/dL (70-99); Osmolality Calculated 280 mOsm/kg (285-295); Sodium 135 mmol/L (136-145); Total Protein 6.2 g/dL (6.4-8.2)
[2020-07-07 07:59] VITALS: BP 125/61; PULSE 67; RESP 16; TEMP 36.7; O2SAT 95
[2020-07-07 08:22] VITALS: BP 125/61; PULSE 67; RESP 16; TEMP 36.7; O2SAT 95
[2020-07-07] MEDS: ENOXAPARIN 40 MG/0.4 ML SYRINGE SUB-Q (08:36)
[2020-07-07] MEDS: PANTOPRAZOLE SOD SESQUIHYDRATE 20 MG TAB PO (08:36)
[2020-07-07] MEDS: DOCUSATE SODIUM 100 MG CAPSULE PO ×2 (08:36→16:46)
[2020-07-07] MEDS: HYDROcodone/acetaminophen (*CRX) 5-325 MG TABLET 1 TAB PO ×3 (08:50→22:34)
--- NOTE | 2020-07-07 09:57 | WPDPN ---
Progress Note: A&P Assessment and Plan (1) Pneumonia: Qualifiers: Pneumonia type: due to unspecified organism Code(s): J18.9 - Pneumonia, unspecified organism Status: Acute Assessment and Plan: Patient treated with Levaquin day 2 Patient WBCs, BUN, lipase and liver function within normal limits CT indicate- Right upper lobe mass which could reflect pneumonia versus malignancy. Recommend antibiotic therapy and plan for CT-guided biopsy. Response to antibiotic therapy can be assessed at the time of planned CT biopsy. Right hilar and mediastinal lymphadenopathy, reactive versus metastatic. Covid negative Repeat CTA in the a.m. (2) Mass of right lung: Code(s): R91.8 - Other nonspecific abnormal finding of lung field Status: Acute Assessment and Plan: CT indicate Will first treat patient with antibiotics given repeat CT if CT not clear patient will have to follow-up with an oncologist ca-125 pending (3) Obesity: Code(s): E66.9 - Obesity, unspecified Status: Acute Assessment and Plan: Patient educated on healthy lifestyle (4) Varicose veins of both lower extremities: Code(s): I83.93 - Asymptomatic varicose veins of bilateral lower extremities Status: Acute Review of Systems Review of Systems: All systems reviewed & are unremarkable except as noted in HPI and below (10 point system review) Exam Narrative: Exam Narrative: GENERAL: This is a well-nourished, well-developed patient, in no apparent distress. HEAD: normocephalic, atraumatic. EYES: PERRL. Sclera clear/white. Vision is grossly intact. EARS: External ears normal, auditory canals clear and without drainage, TMs normal without perforation. Hearing grossly intact. NOSE: External nose normal with no obvious nasal discharge, nares without redness, no rhinorrhea. THROAT: Mucous membranes moist, posterior pharynx clear. NECK: Neck supple, non-tender without lymphadenopathy, masses or thyromegaly. CARDIOVASCULAR: Regular rate and rhythm without murmurs, gallops, or rubs. RESPIRATORY: Clear to auscultation. Breath sounds equal bilaterally. No wheezes, rales, or rhonchi. GASTROINTESTINAL: Abdomen soft, non-tender, nondistended. Bowel sounds are active. No hepato-splenomegaly, or palpable masses. No guarding. SKIN: warm, intact with no suspicious lesions or rash, good texture and turgor. NEURO: awake, alert, and oriented to person, place and time. There were no obvious focal neurologic abnormalities. Steady gait EXTREMITIES: Normal range of motion. 1+ pitting edema to bilateral lower extremity . No calf tenderness. Negative Homans sign bilaterally. BACK: Nontender without deformity or crepitance. No flank tenderness. Objective Data Vital Signs Vital Signs: Vital Signs - 24 hr 07/06/20 15:20 07/06/20 23:08 07/07/20 07:59 Temperature 99.4 F 99 F 98.1 F Pulse Rate 62 66 67 Respiratory Rate 18 18 16 Blood Pressure 124/74 124/76 125/61 Pulse Oximetry 97 99 95 07/07/20 08:22 Temperature 98.1 F Pulse Rate 67 Respiratory Rate 16 Blood Pressure 125/61 Pulse Oximetry 95 Intake/Output Intake/Output: Intake & Output 07/04/20 07/05/20 07/06/20 07/07/20 23:59 23:59 23:59 23:59 Intake Total 2305 200 Balance 2305 200 Meds/Results Medications: Active Medications Generic Name Dose Route Start Last Admin Trade Name Freq PRN Reason Stop Dose Admin Acetaminophen 650 mg 07/06/20 08:31 Acetaminophen 325 Mg Tablet PO Q4H PRN Mild Pain (1-3) or Fever Hydrocodone Bitart/Acetaminophen 1 tab 07/06/20 08:31 07/07/20 08:50 Hydrocodone/Acetaminophen (*Crx) 5-325 Mg Tablet PO 1 tab Q4H PRN Administration Moderate Pain (4-6) Hydrocodone Bitart/Acetaminophen 1 tab 07/06/20 08:31 07/06/20 22:43 Hydrocodone/Acetaminophen (*Crx) 10-325 Mg Tablet PO 1 tab Q6H PRN Administration Pain Rated 7-10 Al Hydrox/Mg Hydrox/Simethicone 30 ml 07/06/20
[2020-07-07 15:30] VITALS: BP 108/75; PULSE 70; RESP 18; TEMP 37.2; O2SAT 99
[2020-07-07 23:42] VITALS: BP 114/58; PULSE 60; RESP 20; TEMP 36.8; O2SAT 94
[2020-07-08 05:45] LABS: Hematocrit 37.1 % (35.0-49.0); Hemoglobin 11.5 g/dL (12.0-15.0); Mean Corpuscular Hemoglobin 27.3 pg (27.0-31.0); Mean Corpuscular Volume 87.9 fL (78.0-102.0); Mean Platelet Volume 9.7 fl (9.2-11.8); Platelet Count Result 116 K/mm3 (150-420); Red Blood Count 4.22 M/mm3 (4.20-5.40); Red Cell Distribution Width 13.8 % (11.6-14.4); White Blood Count 2.1 K/mm3 (4.8-10.8)
[2020-07-08 06:00] LABS: Alanine Aminotransferase 33 U/L (14-59); Albumin Level 2.8 g/dL (3.4-5.0); Alkaline Phosphatase 75 U/L (46-116); Anion Gap 5 mmol/L (8-16); Aspartate Amino Transferase 23 U/L (15-37); Bilirubin,Total 0.3 mg/dL (0.00-1.00); Blood Urea Nitrogen 17 mg/dL (7-18); Calcium 8.4 mg/dL (8.5-10.1); Carbon Dioxide 30 mmol/L (21-32); Chloride 103 mmol/L (98-108); Estimated CRCL calculation 65 ml/min; Estimated Glomerular Filt Rate > 60; Glucose 83 mg/dL (70-99); Magnesium 1.8 mg/dL (1.8-2.4); Osmolality Calculated 286 mOsm/kg (285-295); Potassium 3.9 mmol/L (3.5-5.1); Sodium 138 mmol/L (136-145); Total Protein 6.4 g/dL (6.4-8.2)
[2020-07-08] MEDS: HYDROcodone/acetaminophen (*CRX) 5-325 MG TABLET 1 TAB PO (07:49)
[2020-07-08 07:57] VITALS: BP 120/55; PULSE 60; RESP 18; TEMP 37; O2SAT 98
[2020-07-08] MEDS: DOCUSATE SODIUM 100 MG CAPSULE PO (08:47)
[2020-07-08] MEDS: PANTOPRAZOLE SOD SESQUIHYDRATE 20 MG TAB PO (08:47)
[2020-07-08] MEDS: ENOXAPARIN 40 MG/0.4 ML SYRINGE SUB-Q (08:47)
--- NOTE | 2020-07-08 11:43 | PM.DS ---
DS: Admitting Diagnosis Admitting Diagnosis Admitting Diagnosis: Generalized weakness, right upper quadrant pain, right lower chest pain DS: Discharge Diagnosis Discharge Diagnosis (1) Pneumonia: Qualifiers: Pneumonia type: due to unspecified organism Code(s): J18.9 - Pneumonia, unspecified organism Status: Acute Assessment and Plan: Patient treated with Levaquin day 2 Patient will discharge home with Levaquin 750 mg daily for [address] indicate Stable right upper lobe pneumonia. Covid negative (2) Mass of right lung: Code(s): R91.8 - Other nonspecific abnormal finding of lung field Status: Acute Assessment and Plan: Right lung mass ruled out CT indicate Right upper lobe mass which could reflect pneumonia versus malignancy. Recommend antibiotic therapy and plan for CT-guided biopsy. Repeat CT indicates stable right upper lobe pneumonia (3) Obesity: Code(s): E66.9 - Obesity, unspecified Status: Acute Assessment and Plan: Patient educated on healthy lifestyle (4) Varicose veins of both lower extremities: Code(s): I83.93 - Asymptomatic varicose veins of bilateral lower extremities Status: Acute (5) Lymphadenopathy: Code(s): R59.1 - Generalized enlarged lymph nodes Status: Acute Assessment and Plan: CT on 07/06/2020 indicates Right hilar and mediastinal lymphadenopathy, reactive versus metastatic. CT today indicate Stable mediastinal and right hilar lymphadenopathy, likely reactive. Patient can follow-up with her primary care physician for monitoring (6) Thyroid nodule: Code(s): E04.1 - Nontoxic single thyroid nodule Status: Acute Assessment and Plan: CT indicates Right thyroid nodule. Patient will need to follow-up with her primary care physician for ultrasound Notify her primary care physician's office DS: Summary Hospital Course Hospital Course: This is a 60-year-old white female who presented to our urgent care on 07/06/2020 with complaints of generalized weakness right upper quadrant pain and right lower chest pain. CT of the abdomen and pelvis indicated right upper lobe mass which could reflect pneumonia versus malignancy. It was recommended that patient start antibiotic therapy with a repeat CT. repeat CT today indicates right upper lobe pneumonia stable. Patient is stable she will discharge home with Levaquin daily x10 days .she will also be instructed to follow-up with ultrasound of her thyroid. Due to the CT indicating that she has a right thyroid nodule. The patient denies SOB, CP, palpitation, extremity numbness, lightheadedness, dizziness, constipation, diarrhea, chills, or fever. Time Spent with Patient Time attestation: Total time spent providing and/or coordinating discharge services:60 Exam Narrative: Exam Narrative: GENERAL: This is a well-nourished, well-developed patient, in no apparent distress. HEAD: normocephalic, atraumatic. EYES: PERRL. Sclera clear/white. Vision is grossly intact. EARS: External ears normal, auditory canals clear and without drainage, TMs normal without perforation. Hearing grossly intact. NOSE: External nose normal with no obvious nasal discharge, nares without redness, no rhinorrhea. THROAT: Mucous membranes moist, posterior pharynx clear. NECK: Neck supple, non-tender without lymphadenopathy, masses or thyromegaly. CARDIOVASCULAR: Regular rate and rhythm without murmurs, gallops, or rubs. RESPIRATORY: Clear to auscultation. Breath sounds equal bilaterally. No wheezes, rales, or rhonchi. GASTROINTESTINAL: Abdomen soft, non-tender, nondistended. Bowel sounds are active. No hepato-splenomegaly, or palpable masses. No guarding. SKIN: warm, intact with no suspicious lesions or rash, good texture and turgor. NEURO: awake, alert, and oriented to person, place and time. There were no obvious focal neurologic abnormalities. Steady gait EXTREMITIES: Norm
[2020-07-10 01:04] LABS: CA-125 42 U/mL (<35)
--- NOTE | 2020-07-11 12:38 | PC.NURSE ---
Unable to contact for discharge call back.
== END 2020-07-08 13:20 | disposition home or self-care (01) | DRG 139 ==
LOC: CHSED 23:52 → CHS2ND 07-08 08:01
PROVIDERS: Nurse Practitioner; Admitting Provider Family Medicine; Emergency Provider Family Medicine; Visit Provider Family Medicine
DX: J18.9 Pneumonia, unspecified organism (principal); R91.8 Other nonspecific abnormal finding of lung field; R59.0 Localized enlarged lymph nodes; I83.93 Asymptomatic varicose veins of bilateral lower extremities; E04.1 Nontoxic single thyroid nodule; E66.9 Obesity, unspecified; Z87.891 Personal history of nicotine dependence
CPT/HCPCS: 36415; 71260; 71275; 74177; 80053; 81001; 83690; 83735; 83880; 84484; 85025; 85027; 85380; 85610; 85730; 86304; 87040; 87426; 93005; 96365; 96375; 99285; A9270; C9803; J1650; J1956; J2270; J2405; Q9965; Q9967

== ENCOUNTER 2022-05-30 10:53 | Emergency (ER) | payer OTHER, SELFPAY ==
--- NOTE | ~2022-05-30 | XR_ITS ---
XR chest 1V portable DATE: 05/30/2022 12:20 INDICATION: Cough, sore throat TECHNIQUE: Portable AP chest on 05/30/2022 1227 hours COMPARISON: 07/2020 CT chest abdomen pelvis FINDINGS: Mild infiltrate or possible residual scarring is suggested in the right upper lobe where so me prominent consolidation was noted on 07/2020 CT chest examination. The lungs otherwise appear clear. No pleural effusion or pulmonary vascular congestion or pneumothorax. Heart size appears within normal limits considering magnification associated with AP projection. Aort ic arch calcification, mild aortic unfolding. No hilar or mediastinal enlargement is evident. IMPRESSION: Mild infiltrate or possible residual scarring, right upper lobe Reviewed, dictated and finalized at location A. TRICAL ENGINEERING INTERN
[2022-05-30 11:21] VITALS: BP 97/64; PULSE 99; RESP 16; TEMP 38.1; O2SAT 95
[2022-05-30] MEDS: ACETAMINOPHEN 325 MG TABLET 650 MG PO (11:33)
[2022-05-30 11:45] LABS: Appearance Urine Clear (Clear); Bilirubin Urine 1+ (Negative); Blood Urine 3+ (Negative); Glucose Urine UA Negative (Negative); Ketones Urine Trace (Negative); Leukocyte Esterase Ur Negative (Negative); Nitrate Urine Negative (Negative); Protein Urine 1+ (Negative); Specific Grav Ur 1.025 (1.010-1.020)
[2022-05-30 11:57] LABS: Add Urine Microscopic? YES; Color Urine Dark Yellow (Yellow); Squamous Epithelial Cell Urine Many /hpf (Few); Strep Group A RT-PCR Not Detected (Negative); WBC Urine 0-3 /hpf (0-3)
[2022-05-30 11:58] LABS: Bacteria Urine Trace /hpf
[2022-05-30 12:03] LABS: Influenza A QL RT-PCR Positive (Negative); Influenza B QL RT-PCR Negative (Negative); SARS-CoV-2 RNA PCR Negative (Negative)
--- NOTE | 2022-05-30 12:20 | PC.NURSE ---
ERP at bedside for initial visit at 12:00
--- NOTE | 2022-05-30 12:30 | ED.URI ---
HPI - URI/Sore Throat General Chief Complaint: Upper Respiratory Infection Stated Complaint: Sore throat/Sob/body aches Time Seen by Provider: 05/30/22 10:56 Source: patient and RN notes reviewed Mode of arrival: ambulatory Limitations: no limitations History of Present Illness MD elicited complaint: fever, cough and nasal congestion Onset (ago): day(s) (3) Consistency: progressively worsening Severity: moderate Pain scale (0-10): 7 Able to tolerate fluids by mouth: Yes Exacerbating factors: nothing Relieving factors: NSAID and OTC cold medicine Associated symptoms: chills, myalgias, nasal congestion, cough and shortness of breath Treatments prior to arrival: cold medicine Related Data Allergies Allergy/AdvReac Type Severity Reaction Status Date / Time No Known Allergies Allergy Verified 05/30/22 11:19 Review of Systems Review of Systems: All systems reviewed & are unremarkable except as noted in HPI and below Constitutional: Constitutional: Reports no additional constitutional complaints and Reports fever(s) Eyes: Eyes: Reports no additional eye complaints ENT: Reports system reviewed and no additional complaints, except as documented, Reports nasal congestion and Reports sore throat Cardiovascular: Cardiovascular: Reports no additional cardiovascular complaints Respiratory: Respiratory: Reports chest congestion, Reports cough and Reports dyspnea Gastrointestinal: Gastrointestinal: Reports no additional gastrointestinal complaints Genitourinary: Genitourinary: Reports no additional female genitourinary complaints Musculoskeletal: Musculoskeletal: Reports no additional musculoskeletal complaints Integumentary/Breasts: Skin/Breast: Reports system reviewed and no additional complaints, except as docu Neurologic: Reports system reviewed and no additional complaints, except as documented Psychiatric: Psychiatric: Reports no additional psychiatric complaints Endocrine: Endocrine: Reports no additional endocrine complaints Hematologic/Lymphatic: Hematologic/Lymphatic: Reports no additional hematologic/lymphatic complaints Allergic/Immunologic: Allergic/Immunologic: Reports no additional allergic/immunologic complaints FOR[facility]LY [facility] Past Medical History Medical History Influenza A Obesity Pharyngitis Pneumonia Varicose veins of both lower extremities Social History Social History Smoking packs per day: 1 Smoking cigarettes per day: 20.0 Smoking status: Former smoker Tobacco type: cigarettes Second hand tobacco smoke exposure: Yes Smoking end date: 07/05/10 Alcohol intake: current Drinks per week: 1 Substance use: never Gender identity (if verbalized by the patient): Female Sexual Orientation (if Verbalized by the Patient): Straight or Heterosexual Spiritual care concerns: No Agree to blood products: Yes Exam Const: General: no acute distress and well nourished Nutritional Appearance: well nourished Orientation/consciousness: patient oriented x3 Limitations: no limitations HENMT: Head: normal to inspection Ears: external ears normal, TM's normal bilaterally and EAC's normal Face/Nose/Sinus: Normal external nose present, Normal nares present, normal facial exam and sinuses nontender Face and sinus: normal facial exam and sinuses nontender Mouth: Yes Normal oral and palatal mucosa present and Yes moist mucous membranes Teeth and gingiva: dentition normal Other: mild hyperemic pharynx Eyes: Conjunctivae: conjunctivae normal Pupils: Equal, round and reactive pupils present EOM: EOMs intact bilaterally Neck: Neck: normal visual inspection, no lymphadenopathy and no meningeal signs Chest: Chest palpation & inspection: normal inspection of the chest Resp: Effort & Inspection: normal respiratory effort Auscultation: crackles and rhonchi Cardio: Rate: regular rate Rhy
[2022-05-30] MEDS: SODIUM CHLORIDE 0.9% IV 500 ML 999 ML IV CONT (12:35)
[2022-05-30] MEDS: cefTRIAXone 1 GM, LIDOCAINE HCL 1% LOCAL INJ 2.1 ML IM (12:39)
[2022-05-30 12:42] LABS: Basophils Absolute Auto 0.02 K/mm3 (0.00-0.10); Basophils Percent Auto 0.2 % (0.0-1.0); Hematocrit 35.4 % (35.0-49.0); Hemoglobin 11.3 g/dL (12.0-15.0); Immature Granulocyte Absolute 0.03 K/mm3 (0.00-0.00); Immature Granulocyte Percent A 0.3 % (0.0-0.0); Lymphocytes Absolute Auto 0.56 K/mm3 (1.10-4.50); Lymphocytes Percent Auto 6.5 % (18.0-42.0); Mean Corpuscular HGB Conc 31.9 g/dL (32.0-36.0); Mean Corpuscular Hemoglobin 28.1 pg (27.0-31.0); Mean Corpuscular Volume 88.1 fL (78.0-102.0); Mean Platelet Volume 9.7 fl (9.2-11.8); Monocytes Absolute Auto 0.96 K/mm3 (0.10-0.90); Monocytes Percent Auto 11.1 % (2.0-11.0); Neutrophils Absolute Auto 7.1 K/mm3 (1.7-7.2); Neutrophils Percent Auto 81.9 % (50.0-70.0); Platelet Count Result 117 K/mm3 (150-420); Red Blood Count 4.02 M/mm3 (4.20-5.40); White Blood Count 8.6 K/mm3 (4.8-10.8)
[2022-05-30 13:02] LABS: Lactic Acid Reflex 1.1 mmol/L (0.4-2.0)
[2022-05-30 13:08] LABS: Alanine Aminotransferase 33 U/L (14-59); Albumin Level 3.2 g/dL (3.4-5.0); Alkaline Phosphatase 59 U/L (46-116); Anion Gap 7 mmol/L (8-16); Aspartate Amino Transferase 45 U/L (15-37); Bilirubin,Total 0.3 mg/dL (0.00-1.00); Blood Urea Nitrogen 19 mg/dL (7-18); Calcium 8.1 mg/dL (8.5-10.1); Carbon Dioxide 28 mmol/L (21-32); Chloride 101 mmol/L (98-108); Estimated CRCL calculation 53 ml/min; Estimated Glomerular Filt Rate 55; Glucose 123 mg/dL (70-99); Osmolality Calculated 285 mOsm/kg (285-295); Potassium 3.2 mmol/L (3.5-5.1); Sodium 136 mmol/L (136-145); Total Protein 6.8 g/dL (6.4-8.2)
[2022-05-30] MEDS: POTASSIUM CHLORIDE 20 MEQ TABLET 40 MEQ PO (13:56)
[2022-05-30 14:10] VITALS: BP 96/50; PULSE 88; RESP 17; TEMP 37.3; O2SAT 99
--- NOTE | 2022-05-30 16:20 | PC.NURSE ---
tammike called into [facility] in [place]. [facility] is out and closed until wednesday to transfer.
== END 2022-05-30 14:34 | disposition home or self-care (01) ==
PROVIDERS: Emergency Provider Emergency Medicine
DX: J02.9 Acute pharyngitis, unspecified (principal); B34.9 Viral infection, unspecified; J18.9 Pneumonia, unspecified organism; Z20.822 Contact with and (suspected) exposure to COVID-19
CPT/HCPCS: 36415; 71045; 80053; 81001; 83605; 85025; 87636; 87651; 96360; 96372; 99283; A9270; J0696; J7040

== ENCOUNTER 2023-07-24 17:41 | Emergency (ER) | payer OTHER, SELFPAY ==
--- NOTE | ~2023-07-24 | XR_ITS ---
EXAMINATION: XR chest 1V portable Exam Date/Time: 07/24/2023 18:00 FOREST OFFICER HISTORY: BILAT LEG SWELLING Comparison: 05/30/2022; CT CAP 07/08/2020. RESULT: Lines, tubes, and devices: None. Lungs and pleura: Mild diffuse reticular opacities. Nodular opacities in the right upper lung. Cardiomediastinal silhouette: Stable. Other: No acute osseous or upper abdominal finding. IMPRESSION: Nodular right upper lung opacities may reflect atelectasis or pneumonia. This finding should be follo wed radiographically to ensure resolution. Mild interstitial edema. Reviewed, dictated and finalized at location K. ST OFFICER IMPRESSION: Nodular right upper lung opacities may reflect atelectasis or pneumonia. This f inding should be followed radiographically to ensure resolution. Mild interstitial edema.
--- NOTE | 2023-07-24 17:47 | ED.GENADULT ---
HPI - General Adult General Chief complaint: Extremity Problem,Nontraumatic Stated complaint: leg swelling Time Seen by Provider: 07/24/23 17:43 Source: patient, family and EMS Mode of arrival: ambulatory Limitations: no limitations History of Present Illness HPI narrative: 63-year-old female with a history of ex smoking, obesity, varicose veins with bilateral leg swelling who has been off all her medications for approximately in here presents to the ER with -- bilateral leg swelling -- right leg erythema with 2 cutaneous ulcers with mucopurulent exudate. No fever or chills. -- shortness of breath. Occasional cough. no respiratory distress. Patient is saturating 96% on room air. Onset (ago): day(s) Location: lower extremity Quality: aching Relieving factors: none Exacerbating factors: none Associated symptoms: denies other symptoms Treatments prior to arrival: none Related Data Home Medications Medication Instructions Recorded Confirmed No Home Medications 07/24/23 07/24/23 Allergies Allergy/AdvReac Type Severity Reaction Status Date / Time No Known Allergies Allergy Verified 07/24/23 18:05 Review of Systems Review of Systems: All systems reviewed & are unremarkable except as noted in HPI and below Constitutional: Constitutional: Reports as per HPI and Reports no additional constitutional complaints Eyes: Eyes: Reports as per HPI and Reports no additional eye complaints ENT: Reports system reviewed and no additional complaints, except as documented and Reports as per HPI Cardiovascular: Cardiovascular: Reports as per HPI and Reports no additional cardiovascular complaints Respiratory: Respiratory: Reports as per HPI, Reports no additional respiratory complaints, Reports cough and Reports dyspnea Gastrointestinal: Gastrointestinal: Reports as per HPI and Reports no additional gastrointestinal complaints Genitourinary: Genitourinary: Reports no additional female genitourinary complaints and Reports as per HPI Musculoskeletal: Musculoskeletal: Reports no additional musculoskeletal complaints and Reports as per HPI Integumentary/Breasts: Comments: Bilateral leg swelling with varicose veins. Right leg erythema with 2 cutaneous ulcers. Neurologic: Reports system reviewed and no additional complaints, except as documented and Reports as per HPI Psychiatric: Psychiatric: Reports no additional psychiatric complaints and Reports as per HPI Endocrine: Endocrine: Reports no additional endocrine complaints and Reports as per HPI Hematologic/Lymphatic: Hematologic/Lymphatic: Reports no additional hematologic/lymphatic complaints and Reports as per HPI Allergic/Immunologic: Allergic/Immunologic: Reports no additional allergic/immunologic complaints and Reports as per HPI [facility] Past Medical History Medical History Influenza A Obesity Pharyngitis Pneumonia Varicose veins of both lower extremities Social History Social History Smoking packs per day: 1 Smoking cigarettes per day: 20.0 Smoking status: Former smoker Tobacco type: cigarettes Second hand tobacco smoke exposure: Yes Smoking end date: 07/05/10 Alcohol intake: current Drinks per week: 1 Substance use: never Gender identity (if verbalized by the patient): Female Sexual Orientation (if Verbalized by the Patient): Straight or Heterosexual Spiritual care concerns: No Agree to blood products: Yes Exam Const: General: no acute distress Nutritional Appearance: obese Orientation/consciousness: patient oriented x3 Limitations: no limitations HENMT: Head: normal to inspection Ears: external ears normal Face/Nose/Sinus: Normal external nose present Face and sinus: normal facial exam Mouth: Yes Normal oral and palatal mucosa present Throat: posterior oropharynx normal Eyes: Conjunctivae: conjunctivae n
[2023-07-24 17:53] VITALS: BP 144/61; PULSE 89; RESP 20; TEMP 36.3; O2SAT 100
[2023-07-24 17:53] LABS: Glucose Point of Care 95 mg/dl (65-105)
--- NOTE | 2023-07-24 17:55 | ECG_ITS ---
Measurements Intervals [place] Rate: 80 P: 72 AL: 145 QRS: 80 QRSD: 88 T: 9 QT: 385 QTc: 447 Interpretive Statements SINUS RHYTHM INCOMPLETE RIGHT BUNDLE BRANCH BLOCK BASELINE ARTIFACT- I, II, III, AVR, AVL, AVF, V1-V6 BORDERLINE ECG NO PREVIOUS ECG AVAILABLE FOR COMPARISON Electronically Signed On 07-25-2023 8:20:03 [employer]ANDY SPREADER HELPER by Everardo Garduno D.O.
[2023-07-24 18:14] LABS: Hematocrit 24.9 % (35.0-49.0); Mean Corpuscular HGB Conc 25.7 g/dL (32.0-36.0); Mean Corpuscular Hemoglobin 15.9 pg (27.0-31.0); Mean Corpuscular Volume 61.8 fL (78.0-102.0); Mean Platelet Volume 8.3 fl (9.2-11.8); Platelet Count Result 209 K/mm3 (150-420); Red Blood Count 4.03 M/mm3 (4.20-5.40); Red Cell Distribution Width 21.2 % (11.6-14.4); White Blood Count 3.4 K/mm3 (4.8-10.8)
[2023-07-24 18:16] LABS: Hemoglobin 6.4 g/dL (12.0-15.0)
[2023-07-24 18:31] LABS: Lactic Acid Reflex 0.9 mmol/L (0.4-2.0)
[2023-07-24 18:35] LABS: Occult Blood Positive (Negative)
[2023-07-24 18:38] LABS: Alanine Aminotransferase 41 U/L (14-59); Albumin Level 2.7 g/dL (3.4-5.0); Alkaline Phosphatase 78 U/L (46-116); Anion Gap 4 mmol/L (8-16); Aspartate Amino Transferase 46 U/L (15-37); Bilirubin,Total 0.3 mg/dL (0.00-1.00); Blood Urea Nitrogen 27 mg/dL (7-18); Calcium 8.2 mg/dL (8.5-10.1); Carbon Dioxide 30 mmol/L (21-32); Chloride 101 mmol/L (98-108); Estimated CRCL calculation 73 ml/min; Estimated Glomerular Filt Rate > 60; Glucose 96 mg/dL (70-99); NT Pro B Type Natriuretic Pept 619 pg/mL (0-125); Osmolality Calculated 285 mOsm/kg (285-295); Sodium 135 mmol/L (136-145); Thyroid Stimulating Hormone 2.35 uIU/mL (0.36-3.74); Total Protein 6.6 g/dL (6.4-8.2)
[2023-07-24 18:46] LABS: Partial Thromboplastin Time 23.4 SEC (23.90-30.70); Prothrombin Time 11.1 Seconds (9.50-12.10)
[2023-07-24 18:46] LABS: Band Neutrophils Percent 0 % (0-6); Basophils Percent Manual 0 % (0-1); Eosinophils Percent Manual 0 % (1-6); Lymphocytes Absolute Manual 1.05 K/mm3 (1.1-4.5); Lymphocytes Percent Manual 31 % (18-44); Monocytes Absolute Manual 0.64 K/mm3 (0.1-0.90); Monocytes Percent Manual 19 % (3-9); Neutrophils Percent Manual 50 % (46-73); Total Cells Counted 100
[2023-07-24 18:47] LABS: Platelet Estimate Adequate (Adequate)
[2023-07-24 19:19] VITALS: BP 117/74; PULSE 80; RESP 20; TEMP 36.4; O2SAT 99
[2023-07-24] MEDS: FUROSEMIDE INJ 40 MG/4 ML VIAL IV PUSH (19:35)
[2023-07-24 19:41] VITALS: BP 115/62; PULSE 83; RESP 16; TEMP 36.5; O2SAT 98
[2023-07-24] MEDS: DOXYCYCLINE HYCLATE 100 MG TABLET PO (20:01)
[2023-07-24] MEDS: PIPERACILLN/TAZ 3.375GM/NS50ML 3.375 GM/50 ML BAG IVPB (20:02)
[2023-07-24 20:29] LABS: Appearance Urine Clear (Clear); Bilirubin Urine Negative (Negative); Blood Urine Negative (Negative); Color Urine Light Yellow (Yellow); Glucose Urine UA Negative (Negative); Ketones Urine Negative (Negative); Leukocyte Esterase Ur Negative LEU/UL (Negative); Nitrate Urine Negative (Negative); Protein Urine Negative (Negative); Specific Grav Ur 1.015 (1.010-1.020); Urobilinogen Urine 0.2 mg/dL (0.2-1.0)
[2023-07-24 20:30] LABS: Add Urine Microscopic? NO
[2023-07-24 20:34] VITALS: BP 113/65; PULSE 83; RESP 16; TEMP 36.5; O2SAT 97
--- NOTE | 2023-07-24 20:35 | PC.NURSE ---
Son returns to bedside. Remain awaiting bed assignment from [facility]. Pt voided 500mL cloudy venkat urine via bed samaniego. No incontinence noted. Warm blankets provided.
--- NOTE | 2023-07-24 20:46 | PC.NURSE ---
Bed assignment received at [facility]. Bed 1150-A. Report to TED Pelletier at this time at access line.
--- NOTE | 2023-07-24 20:47 | PC.NURSE ---
Roverto from radiology will push imaging to [facility] in [place].
--- NOTE | 2023-07-24 21:06 | PC.NURSE ---
completed a belongings list sheet w/ pt @[phone]
--- NOTE | 2023-07-24 21:20 | PC.NURSE ---
Pt voided 500 mL clear pale straw urine at this time via bed samaniego.
[2023-07-24 21:29] VITALS: BP 90/59; PULSE 82; RESP 16; TEMP 36.6; O2SAT 98
--- NOTE | 2023-08-04 14:30 | PC.NURSE ---
FINAL BLOOD CULTURE RESULTS X2: NO GROWTH AFTER 5 DAYS. NO ACTION NEEDED.
== END 2023-07-24 21:31 | disposition short-term general hospital (02) ==
PROVIDERS: Emergency Provider Internal Medicine Critical Care Medicine
DX: R91.8 Other nonspecific abnormal finding of lung field (principal); L03.115 Cellulitis of right lower limb; D50.8 Other iron deficiency anemias; I50.9 Heart failure, unspecified; K92.2 Gastrointestinal hemorrhage, unspecified; Z87.891 Personal history of nicotine dependence
CPT/HCPCS: 36415; 36430; 71045; 80053; 81003; 82272; 82948; 83605; 83880; 84443; 84484; 85025; 85610; 85730; 86850; 86900; 86901; 86920; 87040; 93005; 96365; 96375; 99284; A9270; J1940; J2543; P9016